=== PATIENT | male | born 1970 | race Caucasian/White ===

== ENCOUNTER 2017-02-23 21:37 | Observation (INO) | payer OTHER ==
[~2017-02-23] VITALS: Ht 180.3 cm; Wt 99.0 kg
[2017-02-23 21:40] VITALS: BP 172/91; PULSE 94; RESP 16; TEMP 98.8; O2SAT 97
--- NOTE | 2017-02-23 22:23 | RADRPT ---
EXAM DATE/TIME: 02/23/2017 22:14 [place] COMPARISON: No previous studies available for comparison. INDICATIONS : Chest pain. MEDICAL HISTORY : None. SURGICAL HISTORY : None. ENCOUNTER: Initial ACUITY: 1 day PAIN SCORE: 7/10 LOCATION: Bilateral chest FINDINGS: A single view of the chest demonstrates the lungs to be symmetrically aerated without evidence of mas s, infiltrate or effusion. The cardiomediastinal contours are unremarkable. Osseous structures are intact. CONCLUSION: The lungs are clear. Aneudy Ross MD on February 23, 2017 at 22:21 Board Certified Radiologist. This report was verified electronically.
[2017-02-23 22:55] LABS: AUTOMATED NEUTROPHIL # 4.3 TH/MM3 (1.8-7.7); BASOPHIL # 0.1 TH/MM3 (0-0.2); BASOPHIL % 0.6 % (0.0-2.0); EOSINOPHIL # 0.4 TH/MM3 (0-0.4); EOSINOPHIL % 4.7 % (0.0-4.0); HEMATOCRIT 45.1 % (39.0-51.0); HEMO FLAGS DIFF FINAL; LYMPH % 31.5 % (9.0-44.0); LYMPHOCYTE # 2.5 TH/MM3 (1.0-4.8); MEAN CELL VOLUME 90.4 FL (80.0-100.0); MEAN CORPUSCULAR HEMOGLOBIN 29.4 PG (27.0-34.0); MEAN CORPUSCULAR HGB CONC 32.5 % (32.0-36.0); MONO % 8.1 % (0.0-8.0); NEUT % 55.1 % (16.0-70.0); PLATELET COUNT 197 TH/MM3 (150-450); RED BLOOD COUNT 4.99 MIL/MM3 (4.50-5.90); RED CELL DISTRIBUTION WIDTH 13.6 % (11.6-17.2); WHITE BLOOD COUNT 7.8 TH/MM3 (4.0-11.0)
[2017-02-23 23:03] LABS: APTT (PATIENT) 25.3 SEC (24.3-30.1); INTERNATIONAL NORMALIZED RATIO 0.9 RATIO; PROTHROMBIN TIME - PATIENT 10.3 SEC (9.8-11.6)
[2017-02-23] MEDS ORDERED: ASPI81CH CHEW (23:19)
[2017-02-23 23:20] VITALS: BP 139/73; PULSE 86; RESP 18; O2SAT 97
[2017-02-23 23:33] LABS: CREATINE KINASE 165 U/L (39-308)
[2017-02-23 23:35] LABS: ANION GAP 9 MEQ/L (5-15); BICARBONATE 27.3 MEQ/L (21.0-32.0); BLOOD UREA NITROGEN 17 MG/DL (7-18); CHLORIDE 108 MEQ/L (98-107); GLOMERULAR FILTRATION RATE 75 ML/MIN (>89); POTASSIUM 3.8 MEQ/L (3.5-5.1); SODIUM (NA) 144 MEQ/L (136-145)
[2017-02-23 23:50] VITALS: BP 139/73; O2SAT 96
[2017-02-23] MEDS: NITROGLYCERIN 0.4 MG SL 25 TABS/BTL SL SCH (23:56)
[2017-02-23 23:57] VITALS: BP 151/91
[2017-02-24] MEDS ORDERED: NITROGLYCERIN 2% OINT 1 GM PACKET TOP ONE
[2017-02-24] MEDS ORDERED: SODIUM CHLORIDE 0.9% FLUSH 10 ML FLUSH IVF PRN
[2017-02-24] MEDS ORDERED: ASPIRIN 81 MG CHEW TAB PO ONE
--- NOTE | 2017-02-24 00:14 | PD ---
HPI Chief Complaint: Chest Pain Time Seen by Provider: 23:23 Travel History International Travel<30 days: No Contact w/Intl Traveler<30days: No Traveled to known affect area: No History of Present Illness HPI The patient is a 46 year old male who presents to the [facility] emergency department with a history of chest pain that began 3 days ago. He reports that the pain is in the center and to the left of the center in his chest. The patient reports that the pain is a heavy sensation. He reports that the pain is constant. He reports that the pain is worse with getting angry or lying down. He reports having shortness of breath associated with this. He denies having any nausea or vomiting. He denies having any increased sweating. He reports that he normally sweats on a regular basis. The patient reports that he had a flushed sensation all over earlier today and took his blood pressure. He reports that his blood pressure was 196/136. He reports that he took one of his 's pressure medications, lisinopril 5 mg by mouth 1. He reports that he has been told by his primary care physician that his blood pressure is borderline. He has a family history of hypertension, congestive heart failure, and coronary artery disease in his father who is in his 80s. He reports that he has had a stress test done 10 years ago. He denies having any personal history of tobacco use, hyperlipidemia, or diabetes mellitus. He does have a history of sleep apnea, however he was not previously wearing his CPAP regularly due to frequent upper respiratory infections. A review of systems the patient does report having a pressure headache over his forehead directly 3 times per week recently. The patient denies any recent fevers, cough, congestion , neck pain, abdominal pain, vomiting, diarrhea, urinary symptoms, or neurologic symptoms. [facility] Past Medical History Narrative Medical The patient's past medical history is significant for sleep apnea. Medical History: Denies Significant Hx Past Surgical History Narrative Surgical The patient's past surgical history is significant for a hernia repair, left knee meniscus repair. Other Surgery: Yes (hernia ) Social History Alcohol Use: Yes (occas ) Tobacco Use: No Substance Use: No Allergies-Medications (Allergen,Severity, Reaction): Coded Allergies: No Known Allergies (Unverified , 02/23/17) Reported Meds & Prescriptions Reported Meds & Active Scripts Active Reported Aspirin 81 Mg Chew 81 Mg CHEW DAILY Review of Systems Except as stated in HPI: all other systems reviewed are Neg General / Constitutional: No: Fever Eyes: No: Visual changes HENT: No: Headaches Cardiovascular: Positive: Chest Pain or Discomfort, Dyspnea on exertion Respiratory: Positive: Shortness of Breath, No: Cough Gastrointestinal: No: Nausea, Vomiting, Abdominal Pain Genitourinary: No: Dysuria Musculoskeletal: No: Pain Skin: No Rash Neurologic: Positive: Headache, No: Weakness, Focal Abnormalities, Change in Mentation, Slurred Speech, Sensory Disturbance Psychiatric: No: Depression Endocrine: No: Polydipsia Hematologic/Lymphatic: No: Easy Bruising Physical Exam Narrative General: The patient is a well-developed well-nourished male in no acute distress. Head and Neck exam: Head is normocephalic atraumatic. Eyes: EOMI, pupils are equal round and reactive to light. Nose: Midline septum with pink mucous membranes Mouth: Dentition unremarkable. Moist mucus membranes. Posterior oropharynx is not erythematous. No tonsillar hypertrophy. Uvula midline. Airway patent. Neck: No palpable lymphadenopathy. No nuchal rigidity. No thyromegaly. Cardiovascular: Regular rate and rhythm without murmurs, gallops, or rubs. No pulse deficit to the extremities and simultaneous auscultation and palpation of his radial artery. Lungs: Clear to auscultation bilaterally. No wheezes, rhonchi, or rales. Abdomen: Soft, without tenderness to palpation in all 4 quadrants of the abdomen. No guarding, rebound, or rigidity. Normal bowel sounds are audible. No tenderness on palpation of McBurney's point. Extremities: No clubbing, cyanosis, or edema. 2+ pulses in all 4 extremities. No calf tenderness on palpation. Back: No costovertebral angle tenderness to palpation. Neurologic Exam: Grossly nonfocal. Skin Exam: No rash noted. Intact skin that is warm and dry. Data Data Last Documented VS Vital Signs Date Time Temp Pulse Resp B/P Pulse Ox O2 Delivery O2 Flow Rate FiO2 02/23/17 23:57 151/91 02/23/17 23:50 96 Room Air 02/23/17 23:20 86 18 02/23/17 21:40 98.8 Orders Electrocardiogram (02/23/17 21:53) Complete Blood Count With Diff (02/23/17 21:53) Basic Metabolic Panel (Bmp) (02/23/17 21:53) Ckmb (Isoenzyme) Profile (02/23/17 21:53) Troponin I (02/23/17 21:53) Chest, Single Ap (02/23/17 21:53) Act Partial Throm Time (Ptt) (02/23/17 21:53) Prothrombin Time / Inr (Pt) (02/23/17 21:53) CKMB (02/23/17 22:02) CKMB% (02/23/17 22:02) Electrocardiogram (02/23/17 23:46) Ecg Monitoring (02/23/17 23:46) Bilateral Bp Monitoring (02/23/17 23:46) Iv Access Insert/Monitor (02/23/17 23:46) Oximetry (02/23/17 23:46) Oxygen Administration (02/23/17 23:46) Aspirin Chew (Aspirin Chew) (02/24/17 00:00) Nitroglycerin 2% Oint (Nitroglycerin 2% (02/24/17 00:00) Sodium Chloride 0.9% Flush (Ns Flush) (02/24/17 00:00) Nitroglycerin Sl (Nitrostat Sl) (02/24/17 00:00) Labs Laboratory Tests Test 02/23/17 22:02 White Blood Count 7.8 TH/MM3 Red Blood Count 4.99 MIL/MM3 Hemoglobin 14.6 GM/DL Hematocrit 45.1 % Mean Corpuscular Volume 90.4 FL Mean Corpuscular Hemoglobin 29.4 PG Mean Corpuscular Hemoglobin 32.5 % Concent Red Cell Distribution Width 13.6 % Platelet Count 197 TH/MM3 Mean Platelet Volume 8.5 FL Neutrophils (%) (Auto) 55.1 % Lymphocytes (%) (Auto) 31.5 % Monocytes (%) (Auto) 8.1 % Eosinophils (%) (Auto) 4.7 % Basophils (%) (Auto) 0.6 % Neutrophils # (Auto) 4.3 TH/MM3 Lymphocytes # (Auto) 2.5 TH/MM3 Monocytes # (Auto) 0.6 TH/MM3 Eosinophils # (Auto) 0.4 TH/MM3 Basophils # (Auto) 0.1 TH/MM3 CBC Comment DIFF FINAL Differential Comment Prothrombin Time 10.3 SEC Prothromb Time International 0.9 RATIO Ratio Activated Partial 25.3 SEC Thromboplast Time Sodium Level 144 MEQ/L Potassium Level 3.8 MEQ/L Chloride Level 108 MEQ/L Carbon Dioxide Level 27.3 MEQ/L Anion Gap 9 MEQ/L Blood Urea Nitrogen 17 MG/DL Creatinine 1.06 MG/DL Estimat Glomerular Filtration 75 ML/MIN Rate Random Glucose 121 MG/DL Calcium Level 8.6 MG/DL Total Creatine Kinase 165 U/L Creatine Kinase MB 1.0 NG/ML Troponin I LESS THAN 0.02 NG/ML MDM Medical Decision Making Medical Screen Exam Complete: Yes Emergency Medical Condition: Yes Medical Record Reviewed: Yes Differential Diagnosis Acute coronary syndrome, versus anxiety disorder, versus pleurisy, versus pneumothorax, versus costochondritis. Narrative Course During the course of the patients emergency department visit, the patients history, examination, and differential diagnosis were reviewed with the patient. The patient had IV access obtained and blood work sent for analysis. The patient was placed on a quality assurance monitor chassis with oximetry and blood pressure monitoring. An EKG was done on arrival. The patient's EKG shows a sinus rhythm heart rate of 94, no acute ST segment elevation or depression, QRS duration is 100 ms, QTC 409 ms. The patient was initially provided aspirin 162 mg by mouth 1. Nitroglycerin sublingual every 5 minutes 3 when necessary chest pain, nitroglycerin 1 inch the chest wall. The patients laboratory studies were reviewed and remarkable for a white count of 7.8, hemoglobin 14.6, platelets 197 with 8.1 monocytes, basic metabolic profile is remarkable for chloride of 108, GFR 75, glucose 121, CPK 165 with an MB of 1, troponin I less than 0.02, PT PTT within normal limits. Radiology studies were reviewed and remarkable for a chest x-ray that shows no acute abnormality. The patients results were discussed with the patient, including the plan of care. I explained that further testing and/ or monitoring is indicated based on the patients history, examination, and/ or laboratory findings. Therefore, I recommended admission for additional evaluation. The patient expressed understanding and was agreeable with this plan. The patient was admitted to the hospital in stable condition and sent to a bed under the care of the chest pain center. Perc screen is negative decreased the likelihood of pulmonary embolism in this patient with no other significant risk factors. Diagnosis Primary Impression: Chest pain, rule out acute myocardial infarction Admitting Information Admitting Physician Requests: Mariia Jaramillo D. MD Feb 24, 2017 00:14
[2017-02-24] MEDS: NITROGLYCERIN 0.4 MG SL 25 TABS/BTL SL SCH (00:15)
[2017-02-24] MEDS ORDERED: SODIUM CHLORIDE 0.9% FLUSH 10 ML FLUSH IV FLUSH PRN (02:30)
[2017-02-24] MEDS ORDERED: ACETAMINOPHEN 500 MG CPLT PO PRN (02:30)
[2017-02-24 03:43] LABS: CREATINE KINASE 128 U/L (39-308)
[2017-02-24 03:54] VITALS: BP 114/67; PULSE 62; RESP 18; TEMP 97.2; O2SAT 97
[2017-02-24 04:20] VITALS: PULSE 61
[2017-02-24 04:33] LABS: CREATINE KINASE 126 U/L (39-308)
[2017-02-24 04:51] VITALS: O2SAT 95
[2017-02-24 08:00] VITALS: PULSE 90
[2017-02-24 08:02] VITALS: BP 117/77; PULSE 73; RESP 17; TEMP 97.5; O2SAT 96
[2017-02-24] MEDS ORDERED: SODIUM CHLORIDE 0.9% FLUSH 10 ML FLUSH IV FLUSH SCH (09:00)
[2017-02-24] MEDS ORDERED: PANTOPRAZOLE SOD 40 MG DELAYED RELEASE TAB PO SCH (09:00)
--- NOTE | 2017-02-24 10:26 | HHI.DCPOC ---
Discharge Care Plan Diagnosis: (1) Chest pain (2) Sleep apnea Goals to Promote Your Health * To prevent worsening of your condition and complications * To maintain your health at the optimal level Directions to Meet Your Goals Take your medications as prescribed Follow your dietary instruction Follow activity as directed Keep your appointments as scheduled Take your immunizations and boosters as scheduled If your symptoms worsen call your PCP, if no PCP go to Urgent Care Center or Emergency Room Smoking is Dangerous to Your Health. Avoid second hand smoke Call the 24-hour hour crisis hotline for domestic abuse at Victor M Hernandez Feb 24, 2017 10:26
--- NOTE | 2017-02-24 10:50 | HHI.HP ---
[facility] Primary Care Physician Fidel Man MD Chief Complaint Chest pain History of Present Illness This is a 46-year-old male that presents to ED with a complaint of a left-sided tightness/soreness/heaviness in his chest is been there continuously for 3 days. Is worse when he lies down. He works in [employer] and [employer] and the activities with that did not seem to worsen his symptoms. He has noticed shortness of breath with activity over last few months. He was not so short of breath with the symptoms are last 3 days. He checked his blood pressure last night and found to be 196/130 which concerned him and he decided to come to the ED. Denies history of CAD but states his father has CAD. A few months ago he had upper respiratory infection lasted a month but otherwise denies recent illnesses. Denies recent travel. Review of Systems General: Patient denies fevers, chills recent, and recent travel HEENT: Patient denies headache, sore throat, difficulty swallowing. Cardiovascular: Has the chest discomfort as mentioned above. Denies sensation of heart beating rapidly or irregularly. No syncope. Denies diaphoresis. Respiratory: He has been short of breath at times with activities. Denies inspirational chest discomfort. Denies coughing wheezing or hemoptysis. GI: Patient denies nausea, vomiting, diarrhea, abdominal pain, bloody stools. Musculoskeletal: Patient denies joint pain or edema. Denies calf pain or edema. Neurovascular: Patient denies numbness, tingling, weakness in extremities. Denies headache. Endocrine: Denies polyuria and polydipsia. Hematologic: Denies easy bruising. Skin: Denies rash or itching. Past Family Social History Allergies: Coded Allergies: No Known Allergies (Unverified , 02/23/17) Past Medical History Sleep apnea. Denies hypertension, hyperlipidemia, diabetes, and known CAD. Past Surgical History Noncontributory. Reported Medications Reported Meds & Active Scripts Active Reported Aspirin 81 Mg Chew 81 Mg CHEW DAILY Active Ordered Medications Current Medications Medications (Trade) Dose Ordered Sig/Sherwin Route Start Time Stop Time Status Last Admin (NS Flush) 2 ml UNSCH PRN IVF 02/24/17 00:00 (NS Flush) 2 ml UNSCH PRN IV FLUSH 02/24/17 02:30 (NS Flush) 2 ml BID IV FLUSH 02/24/17 09:00 6/12/17 08:38 (Tylenol) 500 mg Q4H PRN PO 02/24/17 02:30 02/24/17 03:53 (Protonix) 40 mg DAILY PO 02/24/17 09:00 02/24/17 08:37 Family History States that his father was diagnosed recently at the age of 81 of congestive heart failure as well as having coronary artery disease. Social History Patient is a lifetime nonsmoker. Has occasional alcohol. Denies illicit drugs. Physical Exam Vital Signs Vital Signs Date Time Temp Pulse Resp B/P Pulse Ox O2 Delivery O2 Flow Rate FiO2 02/24/17 08:02 97.5 73 17 117/77 96 02/24/17 08:00 90 02/24/17 04:51 95 21 02/24/17 04:20 61 02/24/17 03:54 97.2 62 18 114/67 97 02/23/17 23:57 151/91 02/23/17 23:50 96 Room Air 02/23/17 23:50 139/73 02/23/17 23:50 96 Room Air 02/23/17 23:20 86 18 139/73 97 Room Air 02/23/17 21:40 98.8 94 16 172/91 97 Room Air Physical Exam GENERAL: This is a well-nourished, well-developed patient, in no apparent distress. Patient speaks in clear complete sentences. Patient is pleasant. HEENT: Head is atraumatic and normocephalic. Neck is supple without lymphadenopathy and trachea is midline. No JVD or carotid bruits. CARDIOVASCULAR: Regular rate and rhythm without murmurs, gallops, or rubs. RESPIRATORY: Clear to auscultation. Breath sounds equal bilaterally. No wheezes , rales, or rhonchi. Chest wall is nontender. No use of accessory muscles. GASTROINTESTINAL: Abdomen is nontender, nondistended. Abdomen soft. No obvious pulsatile mass or bruit. No CVA tenderness. Strong femoral pulses bilaterally. Normal bowel sounds in all quadrants. MUSCULOSKELETAL: Patient is moving upper and lower extremities freely. No calf tenderness or edema, no Homans sign. Strong pulses in upper and lower extremities. NEUROLOGICAL: Patient is alert and oriented. Cranial nerves 2-12 are grossly intact. No focal deficits and speech is clear. SKIN: No rash and turgor is normal. Laboratory Laboratory Tests Test 02/23/17 02/24/17 02/24/17 02/24/17 22:02 02:50 03:40 09:07 White Blood Count 7.8 Red Blood Count 4.99 Hemoglobin 14.6 Hematocrit 45.1 Mean Corpuscular Volume 90.4 Mean Corpuscular Hemoglobin 29.4 Mean Corpuscular Hemoglobin 32.5 Concent Red Cell Distribution Width 13.6 Platelet Count 197 Mean Platelet Volume 8.5 Neutrophils (%) (Auto) 55.1 Lymphocytes (%) (Auto) 31.5 Monocytes (%) (Auto) 8.1 Eosinophils (%) (Auto) 4.7 Basophils (%) (Auto) 0.6 Neutrophils # (Auto) 4.3 Lymphocytes # (Auto) 2.5 Monocytes # (Auto) 0.6 Eosinophils # (Auto) 0.4 Basophils # (Auto) 0.1 CBC Comment DIFF FINAL Differential Comment Prothrombin Time 10.3 Prothromb Time International 0.9 Ratio Activated Partial 25.3 Thromboplast Time Sodium Level 144 Potassium Level 3.8 Chloride Level 108 Carbon Dioxide Level 27.3 Anion Gap 9 Blood Urea Nitrogen 17 Creatinine 1.06 Estimat Glomerular Filtration 75 Rate Random Glucose 121 Calcium Level 8.6 Total Creatine Kinase 165 128 126 Creatine Kinase MB 1.0 1.0 Troponin I LESS THAN 0.02 LESS THAN 0.02 LESS THAN 0.02 Erythrocyte Sedimentation Rate 3 Result Diagram: 02/23/17220102/23/172201 Imaging Last 48 hours Impressions Chest X-Ray 02/23/172152 Signed Impressions: Service Date/Time: Thursday, February 23, 2017 22:14 - CONCLUSION: The lungs are clear. Aneudy Ross MD Course EKGs have sinus rhythm without significant ST segment depressions or elevations. Assessment and Plan Assessment and Plan * Atypical chest pain: Patient has had serial cardiac enzymes and EKGs for ruling out purposes. He has been seen by Dr. Sha Pineda of cardiology in the chest pain center and will undergo a Ed protocol ETT. He'll be discharged home if the stress test was nonischemic with instructions to follow- up with his primary care physician. * Sleep apnea: Patient has not been using his CPAP device. He has been advised to start using that. Patient is stable at this time. He is agreeable to this plan. Victor M Hernandez Feb 24, 2017 10:50
--- NOTE | 2017-02-24 15:30 | EKG ---
Date Performed: 02/24/2017 Time Performed: 04:05:26 PTAGE: 46 years EKG: Sinus rhythm WITH SINUS ARRHYTHMIA NORMAL ECG PREVIOUS TRACING : 02/24/2017 02.51 Since previous tracing, no significant change noted DOCTOR: Sha Pineda Interpretating Date/Time 02/24/2017 15:29:56
--- NOTE | 2017-02-24 15:32 | EKG ---
Date Performed: 02/24/2017 Time Performed: 02:51:41 PTAGE: 46 years EKG: SINUS BRADYCARDIA BORDERLINE ECG PREVIOUS TRACING : 02/23/2017 22.07 Since previous tracing, no significant change noted DOCTOR: Sha Pineda Interpretating Date/Time 02/24/2017 15:30:35
--- NOTE | 2017-02-24 15:35 | EKG ---
Date Performed: 02/23/2017 Time Performed: 22:07:23 PTAGE: 46 years EKG: Sinus rhythm NORMAL ECG NO PREVIOUS TRACING DOCTOR: Sha Pineda Interpretating Date/Time 02/24/2017 15:33:03
--- NOTE | 2017-02-24 15:36 | TR ---
Date Performed: 02/24/2017 Time Performed: 09:30:32 DOCTOR: Sha Pineda DRUG LIST: CLINICAL HISTORY: CP R/O CT REASON FOR TEST: REASON FOR ENDING: OBSERVATION: CONCLUSION: NOELLE PROTOCOL. NO CP. TEST STOPPED AFTER EXCEEDING GOAL HR SECONDARY TO SOB AND LEG FATIGUE.Maximum UV=336 % Max HR Achieved=95.0% Maximum VC=758/70 Total Exercise Time=8:30 COMMENTS: Patient exercised using the Noelle protocol. No electrocardiographic changes were seen to suggest ischemia. Hemodynamic response to exercise was normal. No significant arrhythmia was prese nt.
== END 2017-02-24 11:27 | disposition home or self-care (01) ==
LOC: NEPE 21:37 → NEDA 02-24 00:22 → NEPHCDU 02-24 03:30
PROVIDERS: ADMIT Family Medicine; ATTEND Family Medicine
DX: R07.89 Other chest pain (principal); R06.02 Shortness of breath; R51 Headache; I49.8 Other specified cardiac arrhythmias; R00.1 Bradycardia, unspecified; G47.30 Sleep apnea, unspecified; Z82.49 Family history of ischemic heart disease and other diseases of the circulatory system; Z79.82 Long term (current) use of aspirin
CPT/HCPCS: 71010; 80048; 82550; 82552; 84484; 85025; 85610; 85652; 85730; 93005; 93017; 99285; G0378